=== PATIENT | male | born 1955 | race Caucasian/White ===

== ENCOUNTER 2017-09-12 20:02 | Emergency (ER) | payer OTHER ==
[~2017-09-12] VITALS: Ht 185.4 cm; Wt 95.3 kg
--- NOTE | ~2017-09-12 | EKG ---
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
[~2017-09-12 20:02] MED LIST: ASPIRIN325; ASPIRIN325 PO; COLACE100 MG PO; EFFIENT10 MG PO; LEVEMIR100 UNIT/1 SUBQ; LIPITOR40 MG PO; LIPITOR80 MG PO; LISINOPRIL2.5 MG PO; METOPROLOL SUCC50 MG PO; NOHOMEMEDICATIONS; NOVOLOG FL100 UNIT/M
[2017-09-12] MEDS ORDERED: METFORMIN HCL500 MG PO (20:21)
[2017-09-12] MEDS ORDERED: VENTOLIN HFA 1818 GM INH (20:22)
[2017-09-12] MEDS ORDERED: SYMBICORT160 MCG/4. INH (20:22)
[2017-09-12] MEDS ORDERED: ASPIR 8181 MG PO (20:24)
[2017-09-12] MEDS ORDERED: CARDIZEM CD120 MG PO (20:24)
[2017-09-12] MEDS ORDERED: XARELTO20 MG PO (20:24)
[2017-09-12] MEDS ORDERED: FLOMAX0.4 MG PO (20:25)
[2017-09-12 21:14] LABS: ABSOLUTE NEUTROPHILS 7.6 thou/uL (1.4-8.2); BASOPHILS 0.5 % (0.0-2.0); EOSINOPHILS 1.9 % (0.0-3.0); HEMATOCRIT 46.9 % (42.0-52.0); HEMOGLOBIN 16.2 gm/dL (14.0-18.0); LYMPHOCYTES 14.7 % (24.0-44.0); MCHC 34.6 g/dL (28.0-37.0); MCV 92.5 fL (80.0-100.0); MONOCYTES 11.2 % (1.0-8.0); POLYS 71.7 % (36.0-66.0); RBC 5.07 mil/uL (4.50-6.00); RDW 13.1 % (10.5-14.5); WBC 10.5 thou/uL (4.0-11.0)
[2017-09-12 21:24] LABS: ANION GAP 13 mmol/L (7-16); BUN 24 mg/dL (7-18); CALCIUM 9.4 mg/dL (8.5-10.1); CHLORIDE 100 mmol/L (98-107); CO2 25 mmol/L (21-32); CREATININE 1.3 mg/dL (0.7-1.3); GLUCOSE 183 mg/dL (74-106); POTASSIUM 4.3 mmol/L (3.5-5.1); SODIUM 138 mmol/L (136-145)
[2017-09-12 21:32] LABS: ALBUMIN 3.6 g/dL (3.4-5.0); MAGNESIUM 1.6 mg/dL (1.8-2.4); SGOT 23 U/L (15-37); SGPT 42 U/L (30-65); TOTAL BILIRUBIN 0.3 mg/dL (<0.1-1.0); TOTAL PROTEIN 7.4 g/dL (6.4-8.2); TROPONIN-I < 0.04 ng/mL (<0.06)
[2017-09-12 21:33] LABS: PLATELET COUNT 209 thou/uL (150-400)
[2017-09-12] MEDS ORDERED: PREDNISONE 20 M20 MG PO (22:40)
[2017-09-12] MEDS ORDERED: ZPAK PO (22:40)
[2017-09-13 00:07] VITALS: BP 118/94
== END 2017-09-13 00:37 | disposition home or self-care (01) ==
LOC: ER 20:02
PROVIDERS: Emergency Medicine
DX: J44.1 Chronic obstructive pulmonary disease with (acute) exacerbation (principal); J06.9 Acute upper respiratory infection, unspecified; R19.7 Diarrhea, unspecified; E11.9 Type 2 diabetes mellitus without complications; Z87.891 Personal history of nicotine dependence; Z79.4 Long term (current) use of insulin

== ENCOUNTER 2018-04-18 08:08 | Emergency (ER) | payer OTHER ==
[~2018-04-18] VITALS: Ht 185.4 cm; Wt 97.5 kg
--- NOTE | ~2018-04-18 | EKG ---
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
[~2018-04-18 08:08] MED LIST changes: +ASPIR 8181 MG PO; +CARDIZEM CD120 MG PO; +FLOMAX0.4 MG PO; +METFORMIN HCL500 MG PO; +PREDNISONE 20 M20 MG PO; +SYMBICORT160 MCG/4. INH; +VENTOLIN HFA 1818 GM INH; +XARELTO20 MG PO; +ZPAK PO
[2018-04-18] MEDS ORDERED: NORCO 5-325 TA1 EACH PO (08:56)
[2018-04-18] MEDS ORDERED: PREDNISONE 20 M20 MG PO (08:56)
[2018-04-18] MEDS ORDERED: VALACYCLOVIR1000 MG PO (08:56)
== END 2018-04-18 09:30 | disposition home or self-care (01) ==
LOC: ER 08:08
DX: B02.9 Zoster without complications (principal); R07.9 Chest pain, unspecified; J44.9 Chronic obstructive pulmonary disease, unspecified; E11.9 Type 2 diabetes mellitus without complications; Z95.5 Presence of coronary angioplasty implant and graft; Z87.891 Personal history of nicotine dependence

== ENCOUNTER 2020-05-29 04:32 | Observation (INO) | payer OTHER ==
[~2020-05-29] VITALS: Ht 185.4 cm; Wt 83.9 kg
[2020-05-29] VITALS (7 sets, daily range): BP systolic 129–146; BP diastolic 63–89
[~2020-05-29 04:32] MED LIST changes: +NORCO 5-325 TA1 EACH PO; +VALACYCLOVIR1000 MG PO
[2020-05-29 04:49] LABS: ABSOLUTE NEUTROPHILS 7.5 thou/uL (1.4-8.2); BASOPHILS 0.9 % (0.0-2.0); EOSINOPHILS 4.3 % (0.0-3.0); HEMATOCRIT 44.3 % (42.0-52.0); HEMOGLOBIN 14.8 gm/dL (14.0-18.0); MCH 33.4 pg (26.0-34.0); MCHC 33.4 g/dL (28.0-37.0); MCV 100.1 fL (80.0-100.0); MONOCYTES 8.4 % (1.0-8.0); PLATELET COUNT 260 thou/uL (150-400); POLYS 66.4 % (36.0-66.0); RBC 4.43 mil/uL (4.50-6.00); RDW 12.9 % (10.5-14.5); WBC 11.2 thou/uL (4.0-11.0)
[2020-05-29 04:51] LABS: ANION GAP 9 mmol/L (7-16); BUN 24 mg/dL (7-18); CHLORIDE 104 mmol/L (98-107); CO2 28 mmol/L (21-32); GLUCOSE 179 mg/dL (74-106); POTASSIUM 3.8 mmol/L (3.5-5.1); SODIUM 141 mmol/L (136-145)
[2020-05-29 05:01] LABS: ALBUMIN 3.5 g/dL (3.4-5.0); LIPASE 74 U/L (73-393); SGOT 11 U/L (15-37); SGPT 20 U/L (30-65); TOTAL BILIRUBIN 0.3 mg/dL (0.2-1.0); TOTAL PROTEIN 7.4 g/dL (6.4-8.2); TROPONIN-I <0.06 ng/mL (<0.06)
[2020-05-29 08:48] LABS: CHOLESTEROL 137 mg/dL (<200); HDL CHOLESTEROL 58 mg/dL (>40); LDL CHOLESTEROL 57 mg/dL (<100); TC:HDL 2.4 Ratio (Not establshd); TRIGLYCERIDE 114 mg/dL (<150); VLDL 23 mg/dL (<40)
[2020-05-29] MEDS ORDERED: LANTUS100 UNIT/M SUBQ (12:20)
--- NOTE | 2020-05-29 16:44 | EKG ---
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 : 1955 Requested By: Vikash Bender Order Number: [id number] MD: Collin Gilbert Measurements Intervals [place] Rate: 96 P: -44 VT: 148 QRS: 94 QRSD: 90 T: 7 QT: 443 QTc: 560 Interpretive Statements Ectopic atrial rhythm Atrial premature complexes Right axis deviation Anteroseptal infarct, old Prolonged QT interval Compared to ECG 04/18/2018 08:13:24 Atrial premature complex(es) now present Prolonged QT interval now present Electronically Signed On 05-29-2020 16:44:40 CDT by Collin Gilbert [email or web address] <ELECTRONICALLY SIGNED> By: Collin Gilbert MD, FAC 05/29/20 1644 0432 0432 Collin Gilbert MD, [facility] /EPI
--- NOTE | 2020-05-29 18:26 | NUR ---
PT. ARRIVED AT FLOOR AROUND 0845; AOX4; ABLE TO AMBULATE WITHOUT ASSISSTANCE; EDUCATED ABOUT FALL PREVENTIONS; ST. UNDERSTANDING; SR-SA ON THE MONITOR; NO C/O CP; PER CARDIOLOGY PT. WILL HAVE CARDIAC CATH ON 05/30/2020; WILL PASS ON REPORT; ADMISSION PERFORMED; PT. DID NOT MEDICATIONS & DOSES; ST. 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 UNDERSTANDING; EDUCATED ABOUT CALLING IF FEELING DECREASE SUGAR; ST. UNDERSTANDING; ASSESSMENT CHARGED; FOLLOWING POC; WILL PASS ON REPORT;
[2020-05-30 00:26] VITALS: BP 122/80
--- NOTE | 2020-05-30 03:55 | NUR ---
ASSESSMENTS CHARTED, MEDS GIVEN CHARTED. PATIENT UP AT VIRGIL IN ROOM TOOK SHOWER UNASSISTED DURING SHIFT CHANGE. 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 DENIED PAIN. FALL PRECAUTIONS IN PLACE DURING SHIFT.
[2020-05-30 04:15] LABS: CALCIUM 8.8 mg/dL (8.5-10.1); CREATININE 1.1 mg/dL (0.7-1.3); POTASSIUM 3.8 mmol/L (3.5-5.1)
[2020-05-30 05:49] VITALS: BP 116/71
[2020-05-30 07:00] VITALS: BP 121/72
[2020-05-30 07:06] LABS: GLYCOHEMOGLOBIN (HGB A1C) 7.2 % (4.8-5.6)
[2020-05-30 11:21] LABS: HEMATOCRIT 43.8 % (42.0-52.0); HEMOGLOBIN 14.6 gm/dL (14.0-18.0); MCH 33.8 pg (26.0-34.0); MCHC 33.3 g/dL (28.0-37.0); MCV 101.5 fL (80.0-100.0); RBC 4.32 mil/uL (4.50-6.00); WBC 9.3 thou/uL (4.0-11.0)
--- NOTE | 2020-05-30 12:04 | 2DMMODE ---
[address] [address] D/M-MODE ECHOCARDIOGRAM Name: HI CARTWRIGHT Room #: 219-P ADM IN M.R.#: [id number] Admission: 05/29/20 Attend Phys: Robles Garduno MD Discharge: Date of : 55 Report #: [id number] THIS REPORT FOR: cc: FAM - Family physician unknown FAM - Family physician unknown Raúl Watson MD [facility] ~ APPROVED REPORT Study performed: 05/30/2020 11:38:32 EXAM: Comprehensive 2D, Doppler, and color-flow Echocardiogram Patient Location: Bedside Room #: 219 Status: routine BSA: 2.08 HR: 90 bpm BP: 121/72 mmHg Rhythm: NSR Other Information Study Quality: Technically DifficultTechnically Limited Technically limited study due to lung disease, very limited imaging windows. Indications COPD Diabetes Atrial Fibrillation CAD Chest Pain Hypertension/HDD 2D Dimensions IVC: 17.00 mm Left Ventricle The left ventricle is normal size. There is normal left ventricular wall thickness. The left ventricular systolic function is normal. The left ventricular ejection fraction is within the normal range. LVEF is 55-60%. This study is not technically sufficient to allow evaluation of the LV diastolic function. Right Ventricle The right ventricle is normal size. The right ventricular systolic [address] [address] D/M-MODE ECHOCARDIOGRAM Name: HI CARTWRIGHT Room #: 219-P ADM IN M.R.#: [id number] Admission: 05/29/20 Attend Phys: Robles Garduno, Discharge: Date of : 55 Report #: [id number] function is normal. Atria The left atrium size is normal. The right atrium size is normal. Aortic Valve The aortic valve is normal in structure. The Aortic valve is sclerotic. No aortic regurgitation is present. There is no aortic valvular stenosis. Mitral Valve The mitral valve is normal in structure. There is no mitral valve regurgitation noted. No evidence of mitral valve stenosis. Tricuspid Valve The tricuspid valve is normal in structure. There is no tricuspid valve regurgitation noted. Pulmonic Valve The pulmonary valve is normal in structure. There is no pulmonic valvular regurgitation. Great Vessels The aortic root is normal in size. IVC is normal in size and collapses >50% with inspiration. Pericardium There is no pericardial effusion. <Conclusion> The left ventricle is normal size. LVEF is 55-60%. This study is not technically sufficient to allow evaluation of the LV diastolic function. The right ventricle is normal size. The left atrium size is normal. The aortic valve is normal in structure. The Aortic valve is sclerotic. There is no aortic valvular stenosis. There is no mitral valve regurgitation noted. There is no tricuspid valve regurgitation noted. [facility] [address] [place] [address] 2 D/M-MODE ECHOCARDIOGRAM Name: HI CARTWRIGHT Room #: 219-P ADM IN M.R.#: [id number] Admission: 05/29/20 Attend Phys: Robles Garduno, Discharge: Date of : 55 Report #: [id number] The aortic root is normal in size. There is no pericardial effusion. <ELECTRONICALLY SIGNED> By: Raúl Watson MD, FACC 05/30/204 03 03 Raúl Watson MD, FACC /INF
[2020-05-30 12:30] VITALS: BP 118/72
[2020-05-30] MEDS ORDERED: CARDIZEM CD120 MG PO (13:02)
[2020-05-30] MEDS ORDERED: ACETAMINOPHEN325 M1 PO (13:02)
[2020-05-30] MEDS ORDERED: LIPITOR40 MG PO (13:02)
[2020-05-30 13:16] VITALS: BP 127/79
--- NOTE | 2020-05-30 16:11 | NUR ---
ASSESSMENT CHARTED - MEDS PER NOV - NO CO-S OF PAIN OR [place], LEATHA DIET AND FLUIDS. PT TO CHARTER BOAT CAPTAIN THIS AM - NO INTERVENTION REQUIRED. VSS AND GROIIN SITE C/D/I POST CATH AND AFTER GETTING OUT OF BED. PT HOME THIS AFTERNOON - INSTRUCTION RE HOME MEDS/ CARE AND FOLLOW UP GIVEN TO PATIENT - PT BECAME SOMEWHAT BELIGERANT THIS AFTERNOON PRIOR TO D/C. STATING THE DOCTORS WRE "[employer] DOCTORS AND DID NOTHING FOR HIM". PT LEFT UNIT AMBULATORY ACCOMPAINED BY NURSE. HOME VIA PVT VEHICLE. MONITOR AND IV REMOVED PRIOR TO D/C.
--- NOTE | 2020-05-31 17:32 | CATHLAB ---
[facility] [place] [address] [place] [address] INVASIVE PROCEDURE REPORT Name: HI CARTWRIGHT Room #: 219-P [facility] Nellie Rodríguez#: [id number] Admission: 05/29/20 Attend Phys: Robles Garduno MD Discharge: 05/30/20 Date of : 55 Report #: [id number] THIS REPORT FOR: cc: FAM - Family physician unknown FAM - Family physician unknown Raúl Watson MD [facility] ~ APPROVED REPORT Study performed: 05/30/2020 07:34:18 Patient Details Patient Status: In-Patient Room #: The patient is a 65 year-old male Event Personnel Ralú Watson Software Specialist, Andrew Harrell RN RN, Doris Almanzar RTR, SERA Scrub, Too Champion RTR Scrub, Nataliia Dyer Monitor Procedures Performed Art Access - R femoral artery* Left Heart Cath w/or w/o Coronaries [id number] [facility] Aortogram Abdominal Peripheral Angio 103039 16359 Initial Mod Sed Same Phys/QHP Gr5y 122275 90796 Mod Sed Same Phys/QHP Ea 639564 Hemostasis w/ Mynx Indication Chest pain Procedure Narrative The Right Groin^ was infiltrated with 1% Lidocaine subcutaneous anesthesia. A PINNACLE 6FR Sheath #[id number] sheath was inserted into the RFA^. Coronary angiography was performed using coronary diagnostic catheters. The right coronary system was accessed and visualized with a JR4 catheter. The left coronary system was accessed and visualized with a JL3.5 catheter. The left ventricle was accessed and visualized with a STR PIG catheter. Left ventriculogram was performed in 30 degree projection. There was no hematoma. Intraoperative Conscious Sedation Sedation start time: 836 Case end Time: 909 Fentanyl 50 mcg Versed 2 mg [facility] [address] [place] [address] INVASIVE PROCEDURE REPORT Name: GABBIEHI Room #: 219-P [facility].#: [id number] Admission: 05/29/20 Attend Phys: Robles Garduno, Discharge: 05/30/20 Date of : 55 Report #: [id number] Fluoro Time: 3.00 minutes Dose: DAP 6608.20 cGycm2 799 mGy Contrast Type and Amount: Visipaque 70 ml Hemodynamics The aortic pressure is 127/69 mmHg with a mean of 89 mmHg. The left ventricular pressure is 128/7 mmHg with a mean of mmHg. The left ventricular end diastolic pressure is 15 mmHg. Conclusion #1. Normal left ventricular size systolic function lower limits of normal inferior hypokinesis EF 50% range #2 abdominal aorta shows mild a aortic ectasia and calcification but no aneurysm or occlusive disease. #3 Long left main with mild ostial disease giving rise to LAD and circumflex #4 LAD with moderate disease there is a proximal eccentric 60 to 70% lesion diffusely diseased distal LAD which wraps the apex. #5 circumflex OM with an eccentric 60% lesion giving rise to a moderate sized OM branch which is mildly diseased #6 dominant right coronary is large and ectatic mid vessel stents have mild in-stent restenosis remotely placed. PDA is preserved. Recommendations and plan: Continue aggressive risk factor modification. No indication for coronary intervention. Will follow moderate proximal LAD lesion with serial stress testing. <ELECTRONICALLY SIGNED> By: Raúl Watson MD, FACC 05/31/20 173 31 31 Raúl Watson MD, FACC /INF
== END 2020-05-30 16:12 | disposition home or self-care (01) ==
LOC: ER 04:32 → 2N 07:55
PROVIDERS: Emergency Medicine; Internal Medicine; Nurse Practitioner Family; ADMIT Internal Medicine; ATTEND Internal Medicine
DX: R07.89 Other chest pain (principal); I25.10 Atherosclerotic heart disease of native coronary artery without angina pectoris; I10 Essential (primary) hypertension; E11.9 Type 2 diabetes mellitus without complications; J44.9 Chronic obstructive pulmonary disease, unspecified; E78.5 Hyperlipidemia, unspecified; Z79.4 Long term (current) use of insulin; Z79.899 Other long term (current) drug therapy
CPT/HCPCS: 10081